=== PATIENT | female | born 1945 | race Caucasian/White ===

== ENCOUNTER → 2023-05-05 12:59 | Outpatient (REF) | payer OTHER, SELFPAY ==
--- NOTE | 2023-05-05 14:03 | CARDSERVDEF ---
Echocardiogram with Definity completed after protocol screening completed. Allergies verified.
Patent IV site: _right metacarpal hand 22 G PC____
IV site flushed with 0.9% NaCl pre and post administration.
Diluted bolus method utilized to enhance visualization of ventricular awan.
Total volume given: __3__ mL
Patient tolerated all procedures well without complications.
Heplock D/C ed at 1355, site clear, no redness, no edema. Pressure held, no bleeding. 2x2 applied and taped, no change in status.
== END ==
LOC: RCS 12:59
PROVIDERS: ATTENDING PHYSICIAN Internal Medicine Cardiovascular Disease; FAMILY PHYSICIAN Family Medicine
DX: R06.09 Other forms of dyspnea (principal)
CPT/HCPCS: 93307; Q9957